=== PATIENT | male | born 1945 | race Caucasian/White ===

== ENCOUNTER 2017-06-21 18:33 | Emergency (ER) | payer MEDICARE, BC ==
[2017-06-21 18:40] VITALS: BP 125/72
--- NOTE | 2017-06-21 19:23 | RAD ---
INDICATION: Fever for one week. COMPARISON: There are no prior studies available for comparison. TECHNIQUE: Dual-energy PA and lateral views of the chest were obtained. FINDINGS: The heart is within normal limits in size. Mediastinal and hilar contours appear within normal limits. The lungs are hyperinflated and clear. No pleural effusion is seen. IMPRESSION: FINDINGS SUGGESTIVE OF COPD, NO EVIDENCE FOR ACUTE ABNORMALITY.
[2017-06-21] MEDS ORDERED: DOXYcycline CAP(*) 100 MG PO ONE (19:33)
--- NOTE | 2017-06-21 19:42 | UC ---
HPI Febrile Illness - HPI Summary HPI Summary: 72 yo male with one week hx of fever and shaking chills myalgias mild headache no cough no SOB no UTI symptoms no n/v/d no abd pain no rash has had Lyme disease in past removed engorged tick in January seen by PMD yesterday and had blood work including lyme titers Tmax today was 103.5 - History of Current Complaint Chief Complaint: UCGeneralIllness Time Seen by Provider: 06/21/17 18:45 Hx Obtained From: Patient Timing: Constant Initial Severity: Mild Current Severity: Moderate Pain Intensity: 2 Pain Scale Used: 0-10 Numeric Alleviating Factors: OTC Medicine Associated Signs and Symptoms: Chills, Diaphoresis, Headache, Myalgia - Risk Factors Pseudomonas Risk Factors: Negative Serious Bacterial Infection Risk Factors: Negative - Allergy/Home Medications Allergies/Adverse Reactions: Allergies Allergy/AdvReac Type Severity Reaction Status Date / Time No Known Allergies Allergy Verified 06/21/17 18:41 Home Medications: Home Medications Ibuprofen TAB* [Advil TAB*] 06/21/17 [History] Omeprazole CAP* [Prilosec CAP* 20 MG] 06/21/17 [History] PMH/Surg Hx/FS Hx/Imm Hx Previously Healthy: Yes Cardiovascular History: Denies: Hx Hypertension Infectious Disease History: No Infectious Disease History: Denies: Traveled Outside the [place] in Last 30 Days - Family History Known Family History: Positive: Hypertension - Social History Alcohol Use: Occasionally Substance Use Type: Reports: None Smoking Status (MU): Never Smoked Tobacco Review of Systems Constitutional: Fever, Chills Skin: Negative Eyes: Negative ENT: Negative Respiratory: Negative Cardiovascular: Negative Gastrointestinal: Negative Genitourinary: Negative Motor: Negative Neurovascular: Negative Musculoskeletal: Myalgia Neurological: Headache - mild Psychological: Negative All Other Systems Reviewed And Are Negative: Yes Physical Exam Triage Information Reviewed: Yes Appearance: Well-Appearing, No Pain Distress, Well-Nourished Vital Signs: Initial Vital Signs Temp 98.0 F 06/21/17 18:35 Pulse 62 06/21/17 18:35 Resp 18 06/21/17 18:35 BP 125/72 06/21/17 18:35 Pulse Ox 100 06/21/17 18:35 Eyes: Positive: Conjunctiva Clear ENT: Positive: Pharynx normal. Negative: Hearing grossly normal - bilateral Hearing Aids, Pharyngeal erythema, Nasal congestion, Nasal drainage, Tonsillar swelling, Tonsillar exudate, Trismus, Muffled/hoarse voice Dental: Negative: Gross Decay/Caries @, Dental Fracture @, Abscess @ Neck: Positive: Supple, Nontender, No Lymphadenopathy Respiratory: Positive: Lungs clear, Normal breath sounds, No respiratory distress, No accessory muscle use Cardiovascular: Positive: RRR, No Murmur. Negative: Tachycardia Abdomen Description: Positive: No Organomegaly, Soft, Bruit. Negative: CVA Tenderness (R), CVA Tenderness (L), Distended, Guarding, Hepatomegaly, McBurney' s Point Tenderness, Peritoneal Signs, Pulsatile Mass, Splenomegaly Musculoskeletal: Positive: ROM Intact, No Edema Neurological: Positive: Alert Psychological Exam: Normal Skin Exam: Normal Course/Dx - Diagnoses Clinic Provider Diagnoses: febrile illness of uncertain cause. suspect Lyme disease Discharge - Discharge Plan Condition: Stable Disposition: HOME Prescriptions: DOXYcycline CAP(*) [DOXYcycline 100MG CAP(*)] 100 mg PO BID #40 cap Patient Education Materials: Lyme Disease (ED), Fever in Adults (ED) Referrals: Balbir Aleman MD [Primary Care Provider] - 2 Days Additional Instructions: we will treat you for possible lyme disease rest fluids tylenol or advil recheck for new or worsening symptoms see you provider in 2 days for recheck
== END 2017-06-21 19:47 | disposition home or self-care (01) ==
LOC: UCEAST 18:33
DX: R50.9 Fever, unspecified (principal)
CPT/HCPCS: 71020; 81003; 99212; A9270-GY; G0463